=== PATIENT | female | born 1980 | race Two or more races ===

== ENCOUNTER 2024-07-29 07:54 | Emergency (ER) | payer MEDICAID, OTHER ==
[~2024-07-29] VITALS: Ht 172.7 cm; Wt 120.6 kg
--- NOTE | 2024-07-29 08:20 | ED.PDOC ---
History of Present Illness HPI Comments 44F who is liberian speaking presents to the ER w/ prior MHx of DM;SHx of C- Section and the c/c of BREWSTER. Pt reports on having a throbbing constant BREWSTER in 1 week w/ light worsening the pain w/ N/ as well. In triage the pt's BP is 152/96. Denies chills, fever, /V/D, CP, SOB or other associated symptom's, modifiers, or recent injuries or sick contact at this time. Chief Complaint: Headache Time Seen by MD: 08:00 Primary Care Provider: pati Reviewed Notes: Nurses Notes, Medications, Allergies Allergies: Coded Allergies: Penicillins (Verified Allergy, Unknown, 07/29/24) Information Source: Patient Mode of Arrival: Ambulatory Severity: Moderate Timing: Weeks Duration: Since onset Prehospital treatment: None Past Medical History PAST MEDICAL HISTORY: DM Surgical History: CLIENT INTEGRATION MANAGER History: No Pertinent CLIENT INTEGRATION MANAGER History Family History Family History: Reviewed,noncontributory to illness, Unknown Social History Smoker: Non-Smoker Alcohol: Denies ETOH Use Drugs: Denies Drug Use Lives In: Home Constitutional: denies: chills, diaphoresis, fatigue, fever, malaise, sweats, weakness, others EENTM: denies: blurred vision, double vision, ear bleeding, ear discharge, ear drainage, ear pain, ear ringing, eye pain, eye redness, hearing loss, mouth pain, mouth swelling, nasal discharge, nose bleeding, nose congestion, nose pain, photophobia, tearing, throat pain, throat swelling, voice changes, others Respiratory: denies: cough, hemoptysis, orthopnea, SOB at rest, shortness of breath, SOB with excertion, stridor, wheezing, others Cardiovascular: denies: chest pain, dizzy spells, diaphoresis, Dyspnea on exertion, edema, irregular heart beat, left arm pain, lightheadedness, p alpitations, PND, syncope, others Gastrointestinal: reports: nausea; denies: abdomen distended, abdominal pain, blood streaked bowels, constipated, diarrhea, dysphagia, difficulty swallowing, hematemesis, melena, poor appetite, poor fluid intake, rectal bleeding, rectal pain, vomiting, others Genitourinary: denies: abnormal vagina bleeding, burning, dyspareunia, dysuria, flank pain, frequency, hematuria, incontinence, pain, , vagina di scharge, urgency, others Neurological: reports: headache; denies: dizziness, fainting, left sided numbness, left sided weakness, numbness, paresthesia, pre-existing deficit, right sided numbness, right sided weakness, seizure, speech problems, tingling, tremors, weakness, others Musculoskeletal: denies: back pain, gout, joint pain, joint swelling, muscle pain, muscle stiffness, neck pain, others Integumetry: denies: bruises, change in color, change in hair/nails, dryness, laceration, lesions, lumps, rash, wounds, others Allergic/Immunocompromised: denies: Difficulty Healing, Frequent Infections, Hives, Itching, others Hematologic/Lymphatic: denies: anemia, blood clots, easy bleeding, easy bruising, swollen glands, others Endocrine: denies: excessive hunger, excessive sweating, excessive thirst, excessive urination, flushing, intolerance to cold, intolerance to heat, unexplained weight gain, unexplained weight loss, others Psychiatric: denies: anxiety, bipolar disorder, depression, hopeless, panic disorder, schizophrenia, sleepless, suicidal, others All Other Systems: Reviewed and Negative Physical Exam General Appearance: Moderate Distress, Normal HEENT: Normal ENT Inspection, Pharynx Normal, TMs Normal Neck: Full Range of Motion, Non-Tender, Normal, Normal Inspection Respiratory: Chest Non-Tender, Lungs Clear, No Accessory Muscle Use, No Respir atory Distress, Normal Breath Sounds Cardiovascular: No Edema, No JVD, No Murmur, No Gallop, Normal Peripheral Pulses, Regular Rate/Rhythm Breast Exam: Deferred Gastrointestinal: No Organomegaly, Non Tender, No Pulsatile Mass, Normal Bowel Sounds, Soft Genitalia: Deferred Pelvic: Deferred Rectal: Deferred Extremities: No calf tenderness, Normal capillary refill, Normal inspection, Normal range of motion, Non-tender, No pedal edema Musculoskeletal : Apperance: Normal Neurologic: Alert, worm sorter II-XII nml as Tested, No Motor Deficits, Normal Affect, Normal Mood, No Sensory Deficits Cerebellar Function: Normal Reflexes: Normal Skin: Dry, Normal Color, Warm Peripheral Pulses: 3+ Radial (R), 3+ Radial (L) Lymphatic: No Adenopathy Was a procedure done? Was a procedure done?: No Differential Dx Considerations may include: Head injury Headache X-Ray, Labs, Meds, VS Vital Signs Date Time Temp Pulse Resp B/P (MAP) Pulse Ox O2 Delivery O2 Flow Rate FiO2 07/29/24 08:31 74 16 99 Room Air 07/29/24 08:31 98.9 74 16 152/96 (114) 99 98.9 07/29/24 08:12 98.9 74 16 152/96 (114) 99 98.9 Current Medications Medications (Trade) Dose Ordered Sig/Celia Route Start Time Stop Time Status Last Admin Acetaminophen/ Hydrocodone Bitart ([place] 10/325MG Tab) 1 tab ONCE ONCE PO 07/29/24 09:45 07/29/24 09:46 DC 07/29/24 09:59 [place] [id number] Ph: [phone] DIAGNOSTIC IMAGING Diagnostic Imaging Report : [id number] Signed PATIENT: PAULINA SIMSACCT: [id number] UNIT: [id number] : 1980 LOC: ER ROOM / BED: / AGE / SEX: 44 / F ADM STATUS: REG ER SERVICE 9 ORDERING PHYSICIAN: TRACIE LINDSAY MD PROCEDURE(s): HWOCT - HEAD WITHOUT CONTRAST REASON: headache ORDER NUMBER(s): [id number], ACCESSION NUMBER(s): [id number] CLINICAL INFORMATION: 44 years old, Female; headache. TECHNIQUE: Axial imaging was obtained through the brain without contrast. Coronal and sagittal reformatted images were obtained, reviewed, and stored. Images were reviewed in brain and bone windows. All CT scans at this medical facility are performed using dose modulation techniques as appropriate to a performed exam including the following: Automated exposure control was utilized; adjustment of the MA and/or KV according to patient size; and use of iterative reconstruction technique. CTDIvol = 67.6 mGy DLP = 1218.56 mGy-cm COMPARISON: None FINDINGS: There is no acute intracranial hemorrhage. No mass effect or midline shift. The ventricles and sulci are within normal limits in size for age. Basal cisterns are patent. The calvarium is unremarkable. Mild partial opacification of the left mastoid air cells. IMPRESSION: 1. No CT evidence of acute intracranial abnormality. 2. Mild partial opacification of the left mastoid air cells, likely mild effusion. Correlate clinically to exclude mastoiditis. ATED BY: RENNY PEDRAZA DO DICTATED DATE/TIME: 07/29/24911 SIGNED BY: RENNY PEDRAZA DO SIGNED DATE/TIME: 07/29/24911 CC: Patient alert. Complaining of headache. Vitals stable. Answering questions. Ambulating. CT of the head reviewed does not show any acute process. Possibly mastoiditis. Was given prescription of Levaquin antibiotic. Her blood pressure slightly elevated. Reviewed her history. Explained to the patient. Continue monitoring. Was told to follow up with her primary care physician. Was told to come back if there is any problem. Time of 1ST Reevaluation: 08:30 Reevaluation 1ST: Unchanged Time of 2ND Reevaluation: 10:50 Reevaluation 2ND: Improved Patient Education/Counseling: Diagnosis, Treatment, Prognosis Family Education/Counseling: No Family Present Departure 1 Departure Time of Disposition: 10:51 Impression: Primary Impression: HTN (hypertension) Qualified Codes: I10 - Essential (primary) hypertension Additional Impressions: Mastoiditis Qualified Codes: H70.90 - Unspecified mastoiditis, unspecified ear Headache Qualified Codes: R51.9 - Headache, unspecified Disposition: 01 HOME / SELF CARE / HOMELESS Condition: Good e-Prescriptions Levofloxacin Hemihydrate (LEVOFLOXACIN) 500 Mg Tab 500 MG PO DAILY for 7 Days, #7 MG Prov: TRACIE LINDSAY MD 07/29/24 Discharged With: Self Critical Care Note Critical Care Time?: No Stability Stability form required: No I personally scribed for TRCAIE LINDSAY MD ([email or web address]) on 07/29/24 at 08:20. Electronically submitted by [employer] [facility] ([email or web address]). I personally scribed for TRACIE LINDSAY MD ([email or web address]) on 07/29/24 at 09:21. Electronically submitted by [employer] ([email or web address]). TRACIE LINDSAY MD July 29, 2024 08:20
[2024-07-29 08:31] VITALS: BP 152/96; PULSE 74; RESP 16; TEMP 98.9; O2SAT 99
--- NOTE | 2024-07-29 09:14 | DVH ---
CLINICAL INFORMATION: 44 years old, Female; headache. TECHNIQUE: Axial imaging was obtained through the brain without contrast. Coronal and sagittal reform atted images were obtained, reviewed, and stored. Images were reviewed in brain and bone windows. Al l CT scans at this medical facility are performed using dose modulation techniques as appropriate to a performed exam including the following: Automated exposure control was utilized; adjustment of the MA and/or KV according to patient size; and use of iterative reconstruction technique. CTDIvol = 67.6 mGy DLP = 1218.56 mGy-cm COMPARISON: None FINDINGS: There is no acute intracranial hemorrhage. No mass effect or midline shift. The ventricles and sulci are within normal limits in size for age. Basal cisterns are patent. The calvarium is unre markable. Mild partial opacification of the left mastoid air cells. IMPRESSION: 1. No CT evidence of acute intracranial abnormality. 2. Mild partial opacification of the left mastoid air cells, likely mild effusion. Correlate clinical ly to exclude mastoiditis.
[2024-07-29] MEDS: HYDROcodone-ACET 10/325MG TAB PO ONE (09:59)
[2024-07-29] MEDS ORDERED: LEVO500T91 PO (10:52)
== END 2024-07-29 10:51 | disposition home or self-care (01) ==
LOC: ER 08:02
DX: I10 Essential (primary) hypertension (principal); H70.90 Unspecified mastoiditis, unspecified ear; R51.9 Headache, unspecified; E11.9 Type 2 diabetes mellitus without complications; Z98.890 Other specified postprocedural states; Z88.0 Allergy status to penicillin
CPT/HCPCS: 70450